=== PATIENT | female | born 1980 | race Caucasian/White ===

== ENCOUNTER 2017-01-13 08:56 | Emergency (ER) | payer OTHER ==
[~2017-01-13] VITALS: Ht 170.2 cm; Wt 74.8 kg
[~2017-01-13 08:56] MED LIST: AMOXICILLIN500 M2 PO; ULTRAM50 M1 PO
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
[2017-01-13] MEDS ORDERED: ALPRAZOLAM1 M2 PO (09:52)
[2017-01-13] MEDS ORDERED: DEXTROAMP-AMPHE20 MG PO (09:52)
[2017-01-13 11:00] VITALS: BP 119/73
[2017-01-13] MEDS ORDERED: PREDNISONE10 M2 PO (11:38)
[2017-01-14] MEDS ORDERED: VISTARIL25 M1 PO (00:47)
== END 2017-01-13 11:46 ==
LOC: ERH 08:56
DX: T78.40XA Allergy, unspecified, initial encounter (principal)
CPT/HCPCS: 93005; 93010; 96361; 96374; 96375; J1200; J2920; J2930

== ENCOUNTER 2017-01-13 19:35 | Emergency (ER) | payer OTHER ==
[~2017-01-13] VITALS: Ht 170.2 cm; Wt 74.8 kg
[~2017-01-13 19:35] MED LIST changes: +ALPRAZOLAM1 M2 PO; +DEXTROAMP-AMPHE20 MG PO; +PREDNISONE10 M2 PO
--- NOTE | 2017-01-13 20:12 | ED GENERAL ADULT ---
History of Present Illness General Chief Complaint: Allergy Symptoms Stated Complaint: ALLERGIC REACTION, WAS HERE THIS MORNING Source: patient Exam Limitations: no limitations Vital Signs & Intake/Output Vital Signs & Intake/Output Vital Signs Date Time Temp Pulse Resp B/P Pulse O2 O2 Flow FiO2 Ox Delivery Rate 01/13 2227 97.2 81 18 144/90 97 Room Air 01/13 2138 97.9 01/13 2118 97.9 89 18 128/97 99 Room Air 01/13 2019 Room Air 01/13 1944 101.1 104 18 155/101 97 Room Air ED Intake and Output 01/14 0000 01/13 1200 Intake Total Output Total Balance Patient 165 lb Weight Allergies Coded Allergies: doxycycline (Intermediate, GI UPSET 08/14/16) Reconcile Medications Alprazolam 1 MG TABLET 1 TAB PO BIDP PRN ANXIETY (Reported) Dextroamphetamine/Amphetamine (Dextroamp-Amphetamin 20 MG Tab) 20 MG TABLET 1 TAB PO BID PRN ADHD (Reported) Prednisone 10 MG TABLET 1 TAB PO DAILY allergic reaction TAKE 4 TABS FOR 3 DAYS THEN TAKE 3 TABS FOR 3 DAYS THEN TAKE 2 TABS FOR 3 DAYS THEN TAKE 1 TAB FOR 3 DAYS Triage Note: PT TO TRIAGE WITH C/O HIVES TO FACE AND CHEST. PT WAS SEEN HERE IN ER FOR SAME THIS MORNING, GOT SOLUMEDROL AND WAS DC WITH RX FOR PREDNISONE. HIVES CAME BACK AN HOUR AGO. ALLERGEN IS UNKNOWN. DENIES DIFFICULTY BREATHING, NO RESP DISTRESS NOTED, O2SAT 97% ON RA, TEMP 101.1. Triage Nurses Notes Reviewed? yes Onset: Abrupt Duration: hour(s): Timing: recent history : No Patient currently breastfeeds: No HPI: 01/13/17 8:32 pm This is a 36-year-old female presents to the emergency department complaining of allergic reaction. According to the patient she was in usual state of health until earlier today when she developed a severe allergic reaction. She presented to the emergency department and received IV steroids and Benadryl. She improved. She went home it did not start the prednisone as she was instructed to start it in the morning. Her symptoms returned. The onset of the symptoms were abrupt, the duration has been the past 24 hours, the severity is significant; as her symptoms required her to come to the emergency department for care. She denies any significant past medical history. She is unclear what she is allergic to. Her LMP is now. Past History Travel History Traveled to [place] past 21 day No Medical History Any Pertinent Medical History? see below for history Neurological: NONE EENT: STRABISMUS Cardiovascular: NONE Respiratory: NONE Gastrointestinal: NONE Hepatic: NONE Renal: NONE Musculoskeletal: NONE Psychiatric: NONE Endocrine: NONE Blood Disorders: NONE Cancer(s): NONE CONDUCTOR/ENGINEER/Reproductive: NONE Surgical History Surgical History: none Psychosocial History What is your primary language Kazakh Tobacco Use: Never used Family History Hx Contributory? No Review of Systems Review of Systems Constitutional: Reports: no symptoms. EENTM: Denies: throat pain. Respiratory: Denies: short of breath. Cardiovascular: Denies: chest pain. GI: Denies: abdominal pain. Genitourinary: Reports: no symptoms. Musculoskeletal: Reports: no symptoms. Skin: Reports: rash. Neurological/Psychological: Reports: no symptoms. Hematologic/Endocrine: Reports: no symptoms. Physical Exam Physical Exam General Appearance: alert, awake, anxious, moderate distress Head: atraumatic, normal appearance, no stridor Eyes: Bilateral: PERRL, EOMI, other (strabismus). Ears, Nose, Throat: normal pharynx, normal ENT inspection Neck: normal inspection, supple Respiratory: normal breath sounds, chest non-tender, no respiratory distress Cardiovascular: regular rate/rhythm Peripheral Pulses: 4+ dorsalis pedis (R), 4+ dorsalis pedis (L) Gastrointestinal: soft, non-tender Extremities: normal inspection, normal range of motion, no edema Neurologic/Psych: no motor/sensory deficits, awake, alert, oriented x 3 Skin: rash, urticaria Core Measures ACS in differential dx? No CVA/TIA Diagnosis: No Severe Sepsis Present: No Septic Shock Present: No Progress Differential Diagnoses I considered the following diagnoses in my evaluation of the patient: [ Anaphylaxis, allergic reaction] Plan of Care: Current Medications Sig/Stella Start time Last Medication Dose Stop Time Status Admin Diphenhydramine HCl 50 MG ONCE ONE 01/13 2045 UNVr (Benadryl) 01/13 2046 Prednisone 60 MG ONCE ONE 01/13 2045 UNVr 01/13 2046 Initial ED EKG: none Departure Departure Disposition: STILL A PATIENT Condition: Stable Clinical Impression Primary Impression: Allergic reaction Referrals: DENG MOREAU,MYL (PCP/Family) Departure Forms: Customer Survey General Discharge Information Comments 01/13/17 11 pm The patient continues to have urticaria. She is improving but slowly. An IV was reestablished IV Solu-Medrol was again given additional IV Benadryl was given. 01/14/17 12:40 am The patient was observed several hours in the emergency Department her rash completely resolved. She would prefer to go home rather than stay overnight in the emergency department as it is Easter. She will take the prednisone as directed. She'll take the first dose as soon as she wakes up in the morning. She will take Atarax every 8 hours tomorrow and then as needed. She will follow-up with her doctor on Sunday. Critical Care Note Critical Care Note Critical Care Time: 30-74 min
[2017-01-14] MEDS ORDERED: VISTARIL25 M1 PO (00:47)
[2017-01-14 01:10] VITALS: BP 147/95
== END 2017-01-14 01:11 ==
LOC: ERH 19:35
DX: T78.40XA Allergy, unspecified, initial encounter (principal)
CPT/HCPCS: 96361; 96374; 96375; J1200; J2920

== ENCOUNTER 2017-04-17 07:00 | Emergency (ER) | payer OTHER ==
[~2017-04-17] VITALS: Ht 167.6 cm; Wt 65.8 kg
[~2017-04-17 07:00] MED LIST changes: +VISTARIL25 M1 PO
[2017-04-17 07:11] VITALS: BP 134/93
--- NOTE | 2017-04-17 07:21 | ED GENERAL ADULT ---
History of Present Illness General Chief Complaint: Animal/Insect Bite Stated Complaint: R ARM BEE STING YES, NOW SWOLLEN Source: patient Exam Limitations: no limitations Vital Signs & Intake/Output Vital Signs & Intake/Output Vital Signs Date Time Temp Pulse Resp B/P B/P Pulse O2 O2 Flow FiO2 Mean Ox Delivery Rate 04/17 0711 97.4 99 20 134/93 100 Room Air Allergies Coded Allergies: doxycycline (Intermediate, GI UPSET 08/14/16) Reconcile Medications Alprazolam 1 MG TABLET 1 TAB PO BIDP PRN ANXIETY (Reported) Dextroamphetamine/Amphetamine (Dextroamp-Amphetamin 20 MG Tab) 20 MG TABLET 1 TAB PO BID PRN ADHD (Reported) Triage Note: PT TO ED C/O BEE STING TO RIGHT ARM YESTERDAY AROUND 1100. TODAY PT C/O SWELLING AND REDNESS GOING DOWN RIGHT ARM, WORSE SINCE YESTERDAY. TOOK BENADRYL WITH NO RELIEF. NO SOB OR DIFF BREATHING NOTED. Triage Nurses Notes Reviewed? yes Onset: Abrupt Duration: day(s): Timing: recent history : No Patient currently breastfeeds: No HPI: 04/17/17 7:45 am 37-year-old female presents to the emergency department for an allergic reaction to a bee sting. According to the patient she was stung by a bee in the right arm yesterday. There was significant erythema and she feels as though it's getting worse. She denies chest tightness shortness of breath or other complaints. She does have a history of severe allergic reactions is not allergic to bee stings that she is aware of. She denies any possibility of . The onset of the symptoms was abrupt, the duration has been the past 24 hours, the severity was significant as her symptoms required her to come to the emergency department for care. Past History Travel History Traveled to [place] past 21 day No Medical History Any Pertinent Medical History? see below for history Neurological: NONE EENT: STRABISMUS Cardiovascular: NONE Respiratory: NONE Gastrointestinal: NONE Hepatic: NONE Renal: NONE Musculoskeletal: NONE Psychiatric: NONE Endocrine: NONE Blood Disorders: NONE Cancer(s): NONE JUVENILE JUSTICE OFFICER/Reproductive: NONE Surgical History Surgical History: none Psychosocial History What is your primary language Italian Tobacco Use: Never used ETOH Use: denies use Illicit Drug Use: denies illicit drug use Family History Hx Contributory? No Review of Systems Review of Systems Constitutional: Reports: no symptoms. EENTM: Reports: no symptoms. Respiratory: Reports: no symptoms. Cardiovascular: Reports: no symptoms. GI: Reports: no symptoms. Genitourinary: Reports: no symptoms. Musculoskeletal: Reports: no symptoms. Skin: Reports: no symptoms. Neurological/Psychological: Reports: no symptoms. Hematologic/Endocrine: Reports: no symptoms. Immunologic/Allergic: Reports: no symptoms. All Other Systems: Reviewed and Negative Physical Exam Physical Exam General Appearance: well developed/nourished, no apparent distress, alert, awake , anxious Head: atraumatic, normal appearance Eyes: Bilateral: normal appearance, PERRL, EOMI. Ears, Nose, Throat: normal pharynx, normal ENT inspection Neck: normal inspection, supple, full range of motion Respiratory: normal breath sounds, chest non-tender Cardiovascular: regular rate/rhythm Peripheral Pulses: 4+ radial (R), 4+ radial (L) Gastrointestinal: soft, non-tender Back: normal range of motion Extremities: erythema and mild swelling to the right proximal arm Punctate abrasion over the tricep no stinger was seen Neurologic/Psych: no motor/sensory deficits, awake, alert, oriented x 3 Skin: intact, normal color, warm/dry Core Measures ACS in differential dx? No CVA/TIA Diagnosis: No Severe Sepsis Present: No Septic Shock Present: No Progress Differential Diagnoses I considered the following diagnoses in my evaluation of the patient: [Surgical reaction, anaphylaxis, cellulitis, foreign body, Lyme disease] Plan of Care: Current Medications Sig/Stella Start time Last Medication Dose Stop Time Status Admin Hydroxyzine HCl 25 MG ONCE ONE 04/17 745 UNVr (Atarax) 04/17 746 Methylprednisolone 125 MG ONCE ONE 04/17 745 UNVr (Solu Medrol) 04/17 746 Initial ED EKG: none Departure Departure Disposition: STILL A PATIENT Condition: Stable Clinical Impression Primary Impression: Bee sting Referrals: DENG MOREAU,MYL (PCP/Family) Departure Forms: Customer Survey General Discharge Information Comments Patient was treated with IV Solu-Medrol. She was put on Atarax and prednisone. She was told to return to the ER should she get fever or the redness get worse. Critical Care Note Critical Care Note Critical Care Time: non-applicable
[2017-04-17] MEDS ORDERED: VISTARIL25 M1 PO (08:12)
[2017-04-17] MEDS ORDERED: PREDNISONE20 M1 PO (08:12)
== END 2017-04-17 08:30 ==
LOC: ERH 07:00
DX: S40.861A Insect bite (nonvenomous) of right upper arm, initial encounter (principal); W57.XXXA Bitten or stung by nonvenomous insect and other nonvenomous arthropods, initial encounter; Y93.9 Activity, unspecified; Y92.9 Unspecified place or not applicable
CPT/HCPCS: 96374; J2930